=== PATIENT | male | born 1970 | race Caucasian/White ===

== ENCOUNTER 2018-05-15 08:55 | Emergency (ER) | payer SELFPAY ==
[2018-05-15 09:04] VITALS: BMI 35.4
[2018-05-15] MEDS ORDERED: predniSONE 20 MG TABLET (UD) PO ONE (09:47)
[2018-05-15] MEDS ORDERED: valACYclovir HCL 1000 MG TABLET PO ONE (09:47)
--- NOTE | 2018-05-15 09:48 | PDOC ---
Attending Attestation - Resident Resident Name: Jason Jang - ED Attending Attestation I have performed the following: I have examined & evaluated the patient, The case was reviewed & discussed with the resident, I agree w/resident's findings & plan, Exceptions are as noted - HPI HPI: 05/15/18 09:43 The patient is a 48 year old male, with no past medical history, who presents to the emergency department with complaint of right sided facial droop. Pt states he first noticed it last night. He endorses some pain in his R ear that started the same time but has since improved. He denies any F/C or recent illness. Denies weakness/numbness in any extremity. Denies slurred speech. Denies dizziness. Denies family history of CVA or AK. The patient denies chest pain, shortness of breath, headache and dizziness. The patient denies fever, chills, nausea, vomit, diarrhea and constipation. The patient denies dysuria, frequency, urgency and hematuria. Allergies: NKDA Past surgical history: none reported Social history: Denies toxic habits - Physicial Exam PE: 05/15/18 09:45 GENERAL: Awake, alert, and fully oriented, in no acute distress. HEAD: No signs of trauma EYES: PERRLA, EOMI, sclera anicteric, conjunctiva clear ENT: Auricles normal inspection, hearing grossly normal, nares patent, oropharynx clear without exudates. Moist mucosa NECK: Nontender, no stepoffs, Normal ROM, supple, no lymphadenopathy, JVD, or masses LUNGS: Breath sounds equal, clear to auscultation bilaterally. No wheezes, and no crackles HEART: Regular rate and rhythm, normal S1 and S2, no murmurs, rubs or gallops ABDOMEN: Soft, nontender, normoactive bowel sounds. No guarding, no rebound. No masses EXTREMITIES: Normal range of motion, no edema. No clubbing or cyanosis. No cords, erythema, or tenderness NEUROLOGICAL: + R facial droop with NO sparing of forehead, 5/5 strength and sensation in all extremities, Normal speech, normal gait, normal cerebellar function SKIN: Warm, Dry, normal turgor, no rashes or lesions noted - Medical Decision Making 05/15/18 09:46 48 M with R facial droop since last night. Likely [place]' palsy. Pt with NO sparing of forehead, consistent with peripheral lesion. NO CVA risk factors or family h/o CVA and no other neuro deficits, making central process unlikely. - Lyme titers as pt works outside - Steroids, Valacyclovir - Eyedrops - F/u neuro Pt is well appearing, with normal vitals. Clinically stable for DC at this time. I discussed the physical exam findings, ancillary test results and final diagnoses with the patient. I answered all of the patient's questions. The patient was satisfied with the care received and felt comfortable with the discharge plan and treatment plan. The patient agrees to follow up with the primary care physician within 24-72 hours.
--- NOTE | 2018-05-15 10:06 | PDOC ---
History of Present Illness - General Chief Complaint: Facial Droop Stated Complaint: EAR PROBLEM, FACIAL DROPPING Time Seen by Provider: 05/15/18 09:10 History Source: Patient Exam Limitations: No Limitations - History of Present Illness Initial Comments: 05/15/18 09:48 48 yo male no significant PMH, no fhx of heart disease or stroke presents to the ED with right sided facial droop that started at 10 pm last night with right ear pain for the last 3 days. Pt states he has had difficulty shutting his right eye, drooling out of the right side of his mouth since 10 pm last night. Pt denies hx of bells palsy, recent illness, LOWE, N/V/F/C, changes in vision, sensory or motor changes on one side of his face or body. Pt works as a fire alarm mechanic. Past History - Past Medical History Allergies/Adverse Reactions: Allergies Allergy/AdvReac Type Severity Reaction Status Date / Time No Known Allergies Allergy Verified 05/15/18 09:26 Home Medications: Ambulatory Orders Peg 400/Hypromellose/Glycerin [Eye Drop Tears] 15 ml OP ONCE #1 drops 05/15/18 Prednisolone Sod Phosphate [Prednisolone Sodium Phosphate] 10 mg PO ASDIR 10 Days #75 tab.rapdis 05/15/18 Prednisolone Sod Phosphate [Prednisolone Sodium Phosphate] 75 mg PO ASDIR 10 Days tab.rapdis 05/15/18 Valacyclovir HCl [Valtrex -] 1,000 mg PO TID 7 Days #21 tablet 05/15/18 COPD: No - Immunization History Immunization Up to Date: Yes - Suicide/Smoking/Psychosocial Hx Smoking History: Never smoked Hx Alcohol Use: No Drug/Substance Use Hx: No Review of Systems - Review of Systems Constitutional: No: Chills, Fever HEENTM: Yes: Ear Pain (right side), Tinnitus (right ear). No: Blurred Vision, Double Vision, Ear Discharge, Hearing Loss Respiratory: No: Shortness of Breath Cardiac (ROS): No: Chest Pain, Edema ABD/GI: No: Constipated, Diarrhea, Nausea, Vomiting : No: Burning, Dysuria Integumentary: No: Change in Color, Rash Neurological: No: Headache, Numbness, Paresthesia, Weakness, Ataxia *Physical Exam - Vital Signs Last Vital Signs Temp Pulse Resp BP Pulse Ox 98.8 F 87 16 180/100 H 99 05/15/18 08:59 05/15/18 09:28 05/15/18 09:28 05/15/18 09:28 05/15/18 09:28 - Physical Exam General Appearance: Yes: Nourished, Appropriately Dressed. No: Apparent Distress HEENT: positive: EOMI, DELMER, TMs Normal. negative: Scleral Icterus (R), Scleral Icterus (L), TM Bulging, TM Dull, TM Erythema, Lesions Respiratory/Chest: positive: Lungs Clear, Normal Breath Sounds. negative: Accessory Muscle Use, Crackles, Rhonchi, Wheezing Cardiovascular: positive: Regular Rhythm, Regular Rate, S1, S2. negative: Edema , JVD, Murmur Vascular Pulses: Dorsalis-Pedis (R): 4+, Doralis-Pedis (L): 4+ Gastrointestinal/Abdominal: positive: Flat, Soft. negative: Pulsatile Mass, Distended, Guarding, Rebound, Tenderness Musculoskeletal: positive: Normal Inspection Extremity: positive: Normal Capillary Refill Integumentary: positive: Normal Color, Dry, Warm. negative: Rash Neurologic: positive: Fully Oriented, Alert, Normal Mood/Affect, Normal Response , Motor Strength 5/5 (upper and lower ext bilaterally), Facial Droop (right side ), Other (unable to contract right side of forehead, left side normal). negative: Sensory Deficit, Finger to Nose (normal), Confused, Disoriented Moderate Sedation - Procedure Monitoring Vital Signs: Procedure Monitoring Vital Signs Temperature 98.8 F 05/15/18 08:59 Pulse Rate 87 05/15/18 09:28 Respiratory Rate 16 05/15/18 09:28 Blood Pressure 180/100 H 05/15/18 09:28 O2 Sat by Pulse Oximetry (%) 99 05/15/18 09:28 Medical Decision Making - Medical Decision Making 05/15/18 10:30 48 yo no sig pmh presents with 3 days of right ear pain and right sided facial droop, inability to close right eye completely and drooling from the right side of the mouth since 10 pm yesterday. Pt unable to contract right forehead but able to contract left side vitals WNL, no fever, pressure elevated on arrival but 140/90 on reassessment DDX includes but not limited to: preciado's palsy, stroke Due to clinical presentation of right sided facial droop, drooling, inability to keep eye closed and inability to contract right forehead with normal contraction of left side along with normal facial sensation, pupillary reaction , normal strength and sensation to the distal ext and no urinary or bowel retention/incontinence, pt likely suffering from viral bells palsy. Steroids, valcyclovir ordered along with lymes titer Pt will be referred to Neurology and given AMB meds with lubricating eye drops Understands and agrees with plan, questions answered *DC/Admit/Observation/Transfer Diagnosis at time of Disposition: Preciado's palsy - Discharge Dispostion Disposition: HOME Condition at time of disposition: Stable Decision to Admit order: No - Prescriptions Prescriptions: Peg 400/Hypromellose/Glycerin [Eye Drop Tears] 15 ml OP ONCE #1 drops Valacyclovir HCl [Valtrex -] 1,000 mg PO TID 7 Days #21 tablet - Referrals Referrals: Teja Patton MD [Staff Physician] - - Patient Instructions Printed Discharge Instructions: DI for Preciado's Palsy Additional Instructions: Please make appointment and follow up with the Primary Care Provider and Neurologist referred to you within the next 24-48 hours. Return to the Emergency Room for new or concerning symptoms including but not limited to: a new rash, confusion, fatigue, headaches, weakness or changes in sensation to one side of your body. Take the medications sent to your pharmacy as prescribed Use eye lubricant as needed for dry eyes and tape the right eye while sleeping. Thank you - Post Discharge Activity
[2018-05-15] MEDS ORDERED: predniSONE 20 MG TABLET (UD) ONE (10:25)
[2018-05-15] MEDS ORDERED: valACYclovir HCL 500 MG TABLET (FP) ONE (10:26)
[2018-05-15 11:21] VITALS: BP 144/108; PULSE 61; TEMP 98.1
[2018-05-17 13:16] LABS: IgG Ab 23 kDa Band Absent (.); IgG Ab 28 kDa Band Absent (.)
== END 2018-05-15 12:15 | disposition home or self-care (01) ==
LOC: JER 08:55
DX: G51.0 Bell's palsy (principal)
CPT/HCPCS: 36415; 86618; 99283-25